=== PATIENT | male | born 1950 | race Caucasian/White ===

== ENCOUNTER 2017-07-25 06:01 | Inpatient (IN) | payer BC ==
[2017-07-25] VITALS (7 sets, daily range): BP systolic 148–152; BP diastolic 69–70; PULSE 50–84; RESP 16–20; TEMP 97.8–98.9; O2SAT 94–96
[~2017-07-25] VITALS: Ht 172.7 cm; Wt 98.0 kg
[~2017-07-25 06:01] MED LIST: ADVA250A INH; ALBU6.7H INH; ASPI1TAB57 PO; CARV12.52 PO; CLOP75TA PO; FENO160T PO; FISH1200 PO; HYDR12.57 PO; ISOS120T PO; LEVO125T4 PO; METF1000 PO; MULT-65 PO; ONGL5TAB PO; RAMI10CA PO; ROSU1TAB8 PO; TEST200I12 IM
--- NOTE | 2017-07-25 06:28 | PD.VS.PN ---
Pre-operative Note Pre-operative diagnosis: AAA Planned procedure: EVAR Interval History: Pt is appropriately anxious but otherwise ready for surgery. No changes in health that would preclude OR. Labs: Hct 46 plt 234 INR 1.0 creatinine 1.4 Blood: T&S EKG: no acute changes Imaging: CTA (AW) reviewed Orders: NPO Ancef 2g IV OCTOR Post-operative destination: PACU Operative site marked: No (not indicated) Consent: Informed consent has been obtained from Ki Humphries. I have explained the procedure in detail and discussed the risks, benefits, and potential complications. All questions have been answered. Kang Sotelo MD July 25, 2017 06:28
[2017-07-25] MEDS ORDERED: SODIUM CHLORID 0.9% 500 ML IV PRN (06:30)
[2017-07-25] MEDS ORDERED: CHLORHEXIDINE GLUCONATE 2 % 1 PACK (2 CLOTHS) TOPICAL PRN (06:30)
[2017-07-25] MEDS ORDERED: LACTATED RINGER'S 1000 ML IV PRN (06:30)
[2017-07-25] MEDS ORDERED: POVIDONE IODINE 5% (ANTISEPSIS KIT) 4 APPLICATIONS EACH NARE PRN (06:30)
[2017-07-25] MEDS ORDERED: METOPROLOL TARTRATE 25 MG TAB PO PRN (06:30)
[2017-07-25] MEDS ORDERED: VITA400C5 PO (06:55)
[2017-07-25] MEDS ORDERED: META48.53 PO (06:55)
[2017-07-25] MEDS ORDERED: OSTETAB2 PO (06:55)
[2017-07-25] MEDS ORDERED: CETI10 PO (06:55)
[2017-07-25] MEDS ORDERED: FISHCAP4 PO (06:55)
[2017-07-25] MEDS ORDERED: COQ1200C3 PO (06:55)
[2017-07-25] MEDS ORDERED: GARL100T PO (06:55)
[2017-07-25] MEDS ORDERED: PRAS1CAP PO (06:55)
[2017-07-25] MEDS ORDERED: REFRDRO EACH EYE (06:55)
[2017-07-25] MEDS ORDERED: CORICAP PO (06:55)
[2017-07-25] MEDS ORDERED: CYAN1TAB24 PO (06:55)
[2017-07-25] MEDS ORDERED: LEVO137T2 PO (06:55)
[2017-07-25] MEDS ORDERED: RESV100C PO (06:55)
[2017-07-25] MEDS ORDERED: VITATAB25 PO (06:55)
[2017-07-25] MEDS ORDERED: CARVEDILOL 12.5 MG TAB PO ONE (07:15)
[2017-07-25] MEDS ORDERED: HEPARIN SODIUM - IV 10,000 UNITS/10 ML VIAL ONE (07:41)
[2017-07-25] MEDS ORDERED: ceFAZolin 2 GM PREMIX 50 ML ONE (07:41)
[2017-07-25] MEDS ORDERED: HEPARIN-NS/PF INJ 500 ML ONE (07:41)
[2017-07-25] MEDS ORDERED: PROTAMINE SULFATE 50 MG/5 ML VIAL ONE (07:41)
[2017-07-25] MEDS ORDERED: FAMOTIDINE 20 MG/2 ML VIAL ONE (07:58)
[2017-07-25] MEDS ORDERED: ACETAMINOPHEN 1000 MG/100 ML 100 ML IV ONE (07:58)
[2017-07-25] MEDS ORDERED: MIDAZOLAM HCL 2 MG/2 ML VIAL ONE (07:59)
[2017-07-25] MEDS ORDERED: PHENYLEPH/NS 1000 MCG/10 ML SYR IV ONE (09:07)
[2017-07-25] MEDS ORDERED: LIDOCAINE HCL 1% PF 5 ML SYRINGE OTHER ONE (09:07)
[2017-07-25] MEDS ORDERED: SODIUM CHLORIDE 0.9% 10 ML VIAL IV ONE (09:07)
[2017-07-25] MEDS ORDERED: PROPOFOL 200 MG/20 ML AMP IV ONE (09:07)
[2017-07-25] MEDS ORDERED: ONDANSETRON HCL 4 MG/2 ML VIAL IV ONE (09:07)
[2017-07-25] MEDS ORDERED: ROCURONIUM INJ 50 MG/5 ML SYRINGE IV PUSH ONE (09:07)
[2017-07-25] MEDS ORDERED: GLYCOPYRROLATE 1 MG/5 ML SYRINGE IV PUSH ONE (09:07)
[2017-07-25] MEDS ORDERED: NEOSTIGMINE 5 MG/5 ML SYRINGE IV PUSH ONE (09:07)
[2017-07-25] MEDS ORDERED: NORMOSOL R INJ 1,000 ML IV ONE (09:07)
[2017-07-25] MEDS ORDERED: DEXAMETHASONE SOD PHOS 4 MG/ML VIAL IV ONE (09:07)
[2017-07-25] MEDS ORDERED: SODIUM CHLORID 0.9% 500 ML INJ 500 ML IV ONE (09:07)
[2017-07-25] MEDS ORDERED: IOHEXOL 300 INJ 50 ML IV ONE (09:20)
--- NOTE | 2017-07-25 10:04 | HHI.PR ---
cc: Kang Sotelo MD; Noah Mendez MD Immediate Post Op Note Procedure Date: July 25, 2017 Pre Op Diagnosis: AAA Post Op Diagnosis: AAA Surgeon: Kang Sotelo Service Or Work Dispatcher Chief(s): Kang Mckeon Procedure: 1. EVAR 2. R CORPORATE FITNESS PROGRAM COORDINATOR Perclose (17F) 3. L CORPORATE FITNESS PROGRAM COORDINATOR Angioseal (6F) Findings: successful EVAR without endoleak at end of case good Doppler signals at conclusions of case Complications: none Specimen(s) removed: none Estimated blood loss: 75mL Anesthesia: General Drains: None Fluids: 1400mL IVF Urinary Output (mLs): 400 Patient to: PACU Patient Condition: Good Implant/Devices: SEE IMPLANT LOG (if applicable) Date/Time of Procedure: SEE SURGICAL CARE RECORD Kang Sotelo MD July 25, 2017 10:04
[2017-07-25] MEDS ORDERED: DEXTROMETHORPHAN GUAIFENESIN PO PRN (10:15)
[2017-07-25] MEDS ORDERED: NON-FORMULARY DRUG (Psyllium Powder (Metamucil Original Texture) 1 SCOOP) PO PRN (10:15)
[2017-07-25] MEDS ORDERED: BISACODYL 10 MG SUPP RECTAL PRN (10:15)
[2017-07-25] MEDS ORDERED: SENNOSIDES 8.6 MG TAB PO PRN (10:15)
[2017-07-25] MEDS ORDERED: MAGNESIUM HYDROXIDE SUSP 30 ML CUP PO PRN (10:15)
[2017-07-25] MEDS ORDERED: LACTULOSE SYRUP 20 GM/30 ML CUP PO PRN (10:15)
[2017-07-25] MEDS ORDERED: DO NOT ADM ANY ANTICOAGULANT DRUGS PRN (10:24)
[2017-07-25] MEDS ORDERED: *morphine SULFATE 4 MG/ML PERIprocedure ONLY ONE ×3 (10:40→11:33)
[2017-07-25] MEDS ORDERED: MORPHINE SULFATE 4 MG/ML INJ ONE (11:05)
--- NOTE | 2017-07-25 11:12 | MP ---
cc: Kang Sotelo MD DATE OF OPERATION: PREOPERATIVE DIAGNOSIS: Abdominal aortic aneurysm. POSTOPERATIVE DIAGNOSIS: Abdominal aortic aneurysm. PROCEDURE: 1. Endovascular exclusion of abdominal aortic aneurysm using an aortobi-iliac graft. 2. Right common femoral artery Perclose for a 17-Monegasque sheath. 3. Left common femoral artery Angio-Seal for a 6-Monegasque sheath. ATTENDING SURGEON: Kang Sotelo MD CARD ROOM MANAGER SURGEON: Kang Browne. ANESTHESIA: General. INDICATIONS: Mr. Humphries is a 66-year-old gentleman with 5.3 cm abdominal aortic aneurysm. After a thorough discussion was held with the patient explaining the risks and benefits, he was taken to operating room for endovascular exclusion. DESCRIPTION OF PROCEDURE: Informed consent was obtained from the patient. He was taken to the operating room and placed supine on the operating table. An appropriate timeout was taken to ensure the patient's identity, the operative site and the planned procedure. The administration of 2 grams of Ancef was initiated prior to skin incision and will be discontinued after a single preoperative dose. Everyone in the room agreed with the timeout and we proceeded. He was prepped from his nipples to his knees. A 21-gauge micropuncture needle was used to access both common femoral arteries, was exchanged using Seldinger technique for a micropuncture sheath after which a 0.035 STORQ wire was introduced into both sheaths and then the left was exchanged for a 6-Monegasque sheath, the right for a 5-Monegasque sheath and 2 Perclose ProGlide sutures were then tied and inserted on the right hand side and the 8 Monegasque sheath was placed. The patient was systemically heparinized with 10,000 units of IV heparin. The STORQ wire was exchanged for a Lunderquist on the right and over the left-hand side a snare catheter was placed. The Cherie dilators were used to dilate the skin and subcutaneous fat and arteriotomy and the 17-Monegasque sheath was inserted on the right hand side and the main device was inserted, taking caution not to wrap the contralateral wire. Using a snare, the wire was snared from the contralateral side and then the device was pulled down to sit on the aortic bifurcation. The contralateral limb was deployed without difficulty and the wire was then unfastened from the top of the device with a pigtail catheter from the left hand side. The remainder of the main unibody device was deployed and the delivery system was removed. The sheath was then readvanced to proximal to the graft, up the right hand side and the proximal stent was then inserted. It was a 28 x 95 device. Angiography was performed to look at the renal arteries and the device was deployed without difficulty. After rewiring the pigtail catheter, completion angiogram showed excellent seating of the device, without any evidence of an endoleak. The device was removed, and two 10 mm balloons used to balloon the iliac limbs. The wire catheter and sheath were removed. Perclose were tied down on the right hand side and the left groin sheath was removed and Angio-Seal was deployed for hemostasis. There were good signals in the feet and the heparin was reversed with protamine. The patient was then awoken by Anesthesia and transferred to the recovery room in stable condition. I was present and scrubbed and performed the entire procedure. MD EZEQUIEL Plasencia/DANIEL , 10:19 AM , 11:09 AM CYRUS
[2017-07-25] MEDS: HYDROmorphone HCL 2 MG TAB PO PRN ×2 (15:53→21:57)
[2017-07-25] MEDS ORDERED: PRASTERONE 25 MG PO SCH (21:00)
[2017-07-25] MEDS ORDERED: FAMOTIDINE 20 MG TAB PO SCH (21:00)
[2017-07-25] MEDS ORDERED: BUDESONIDE-FORMOTEROL 160/4.5 MCG INHALER INH SCH (21:00)
[2017-07-25] MEDS ORDERED: CETIRIZINE HCL 10 MG TAB PO SCH (21:00)
[2017-07-25] MEDS: CARVEDILOL 12.5 MG TAB PO SCH (21:57)
[2017-07-25] MEDS: RAMIPRIL 5 MG CAP PO SCH (21:58)
[2017-07-25] MEDS: DOCUSATE SODIUM 50 MG/SENNA 8.6 MG TAB PO SCH (21:58)
[2017-07-26 03:00] VITALS: BP 170/81; PULSE 65; PULSE 66; RESP 17; TEMP 99; O2SAT 96
[2017-07-26] MEDS: HYDROmorphone HCL 2 MG TAB PO PRN (04:05)
[2017-07-26 04:38] LABS: HEMOGLOBIN 14.8 GM/DL (13.0-17.0); MEAN CELL VOLUME 91.5 FL (80.0-100.0); MEAN CORPUSCULAR HEMOGLOBIN 31.6 PG (27.0-34.0); MEAN CORPUSCULAR HGB CONC 34.5 % (32.0-36.0); MEAN PLATELET VOLUME 7.8 FL (7.0-11.0); PLATELET COUNT 200 TH/MM3 (150-450); RED CELL DISTRIBUTION WIDTH 15.5 % (11.6-17.2); WHITE BLOOD COUNT 12.7 TH/MM3 (4.0-11.0)
[2017-07-26 05:09] LABS: BICARBONATE 25.5 MEQ/L (21.0-32.0); CALCIUM 8.8 MG/DL (8.5-10.1); CREATININE 1.39 MG/DL (0.60-1.30)
[2017-07-26] MEDS ORDERED: LEVOTHYROXINE SODIUM 112 MCG TAB PO SCH (06:00)
[2017-07-26] MEDS ORDERED: LEVOTHYROXINE SODIUM 25 MCG TAB PO SCH (06:00)
[2017-07-26 07:00] VITALS: BP 164/71; PULSE 61; RESP 18; TEMP 98.2; O2SAT 97
--- NOTE | 2017-07-26 07:28 | PD.VS.PN ---
Subjective POD #: 1 Procedure(s): EVAR Subjective/Hospital Course looks great; pain controlled ambulating ever po voided since Abdul out Objective Vitals/I&O Date Time Temp Pulse Resp B/P (MAP) Pulse Ox O2 Delivery O2 Flow Rate FiO2 07/26/17 05:29 16 07/26/17 03:00 99.0 65 17 170/81 (110) 96 07/26/17 03:00 66 07/25/17 23:00 51 07/25/17 23:00 97.8 50 16 148/70 (96) 94 07/25/17 19:00 98.9 61 16 152/69 (96) 95 07/25/17 19:00 61 07/25/17 18:00 74 07/25/17 17:00 84 07/25/17 16:38 94 21 07/25/17 16:00 71 07/25/17 15:45 72 07/25/17 15:45 98.4 72 20 151/70 (97) 96 07/25/17 15:30 98.1 68 17 141/65 (90) 97 Nasal Cannula 2 07/25/17 15:00 67 17 136/66 (89) 97 Nasal Cannula 2 07/25/17 14:00 50 17 133/65 (87) 98 Nasal Cannula 2 07/25/17 13:30 42 15 114/66 (82) 98 Nasal Cannula 2 07/25/17 13:00 59 13 136/69 (91) 98 Nasal Cannula 2 07/25/17 12:30 53 15 136/62 (86) 97 07/25/17 12:00 54 14 129/64 (85) 97 Nasal Cannula 2 07/25/17 11:45 54 14 136/62 (86) 97 Nasal Cannula 2 07/25/17 11:15 52 17 154/63 (93) 96 Nasal Cannula 2 07/25/17 11:00 56 17 154/70 (98) 97 Nasal Cannula 2 07/25/17 10:45 56 17 131/73 (92) 94 Nasal Cannula 2 07/25/17 10:34 Nasal Cannula 2 07/25/17 10:30 63 19 133/70 (91) 100 Simple Mask 6 154/75 (101) 07/25/17 10:21 97.3 64 19 138/63 (88) 97 Simple Mask 6 07/26/17 07/26/17 07/26/17 07:00 15:00 23:00 Intake Total 240 ml Output Total 400 ml Balance -160 ml Exam: abdomen NT groins soft, no ecchymoses Laboratory Laboratory Tests Test 07/26/17 04:23 White Blood Count 12.7 Red Blood Count 4.70 Hemoglobin 14.8 Hematocrit 43.0 Mean Corpuscular Volume 91.5 Mean Corpuscular Hemoglobin 31.6 Mean Corpuscular Hemoglobin Concent 34.5 Red Cell Distribution Width 15.5 Platelet Count 200 Mean Platelet Volume 7.8 Blood Urea Nitrogen 12 Creatinine 1.39 Random Glucose 138 Calcium Level 8.8 Sodium Level 139 Potassium Level 3.9 Chloride Level 102 Carbon Dioxide Level 25.5 Anion Gap 12 Estimat Glomerular Filtration Rate 51 Assessment and Plan Plan POD#1 s/p EVAR Looks great D/C today Discharge Planning today f/u 1m with CTA A/P Kang Sotelo MD July 26, 2017 07:28
--- NOTE | 2017-07-26 07:35 | PD.VS.DC ---
cc: Noah Mendez MD Discharge Summary Admission Date: July 25, 2017 at 06:01 Discharge Date: July 26, 2017 Admission Diagnosis: (1) AAA (abdominal aortic aneurysm) without rupture Discharge Diagnosis: (1) AAA (abdominal aortic aneurysm) without rupture ICD Codes: I71.4 - Abdominal aortic aneurysm, without rupture Brief History from admission 66 yo male with asymptomatic AAA, 5.3 cm. Presents for elective EVAR Procedure(s): EVAR Significant Findings Laboratory Tests Test 07/26/17 04:23 White Blood Count 12.7 TH/MM3 (4.0-11.0) Creatinine 1.39 MG/DL (0.60-1.30) Random Glucose 138 MG/DL (74-106) Estimat Glomerular Filtration Rate 51 ML/MIN (>89) Hospital Course: The patient underwent percutaneous EVAR on 07/25 and did well post-operatively. By POD#1, he was ambulating, tolerating a diet, and had voided since Abdul removed. Groin puncture sites looked good. Ready for discharge Discharge Condition: Good Discharge Disposition: Discharge Home Any questions or concerns: Call [facility] at [facility] [phone] Kang Sotelo MD July 26, 2017 07:35
[2017-07-26] MEDS: DOCUSATE SODIUM 50 MG/SENNA 8.6 MG TAB PO SCH (08:39)
[2017-07-26] MEDS: RAMIPRIL 5 MG CAP PO SCH (08:40)
[2017-07-26] MEDS: CARVEDILOL 12.5 MG TAB PO SCH (08:41)
[2017-07-26] MEDS ORDERED: CYANOCOBALAMIN 1,000 MCG TAB PO SCH (09:00)
[2017-07-26] MEDS ORDERED: metFORMIN HCL 500 MG TAB PO SCH (09:00)
[2017-07-26] MEDS ORDERED: NON-FORMULARY DRUG (Omega-3 Fatty Acids (Fish Oil 1200 mg) 1 CAP) PO SCH (09:00)
[2017-07-26] MEDS ORDERED: MULTIVITAMIN TAB PO SCH (09:00)
[2017-07-26] MEDS ORDERED: SAXAGLIPTIN PO SCH (09:00)
[2017-07-26] MEDS ORDERED: HYDROCHLOROTHIAZIDE 12.5 MG CAP PO SCH (09:00)
[2017-07-26] MEDS ORDERED: ATORVASTATIN 40 MG TAB PO SCH (09:00)
[2017-07-26] MEDS ORDERED: FENOFIBRATE 145 MG TAB PO SCH (09:00)
[2017-07-26] MEDS ORDERED: VITAMIN E 400 UNIT CAP PO SCH (09:00)
[2017-07-26] MEDS ORDERED: CLOPIDOGREL 75 MG TAB PO SCH (09:00)
[2017-07-26] MEDS ORDERED: ASPIRIN EC 81 MG TABEC PO SCH (09:00)
[2017-07-26] MEDS ORDERED: CHOLECALCIFEROL (VIT D3) 1000 UNIT TAB PO SCH (09:00)
[2017-07-26] MEDS ORDERED: ISOSORBIDE MONONITRATE 60 MG CR TAB (IMDUR) PO SCH (09:00)
[2017-07-26] MEDS ORDERED: ENOXAPARIN SODIUM 40 MG/0.4 ML SYRINGE SQ SCH (09:30)
== END 2017-07-26 09:08 | disposition home or self-care (01) | DRG 269 ==
LOC: EDBD → HSDI 06:01 → EDUNIT# 08:00 → HCPC 15:35
PROVIDERS: ADMIT Surgery; ATTEND Surgery
PROC: 04V03DZ Restriction of Abdominal Aorta with Intraluminal Device, Percutaneous Approach (ICD-10-PCS; principal; 2017-07-25 08:33)
DX: I71.4 Abdominal aortic aneurysm, without rupture (principal); I10 Essential (primary) hypertension; E11.9 Type 2 diabetes mellitus without complications; E78.5 Hyperlipidemia, unspecified; I25.10 Atherosclerotic heart disease of native coronary artery without angina pectoris; Z87.891 Personal history of nicotine dependence; Z95.5 Presence of coronary angioplasty implant and graft; Z90.49 Acquired absence of other specified parts of digestive tract; Z88.8 Allergy status to other drugs, medicaments and biological substances; Z79.02 Long term (current) use of antithrombotics/antiplatelets; Z79.82 Long term (current) use of aspirin; Z79.84 Long term (current) use of oral hypoglycemic drugs
CPT/HCPCS: 75630; 80048; 85027; 86850; 86900; 86901; 94150; C1725; C1769; J0131; J0690; J1100; J1644; J1650; J2250; J2270; J2370; J2405; J2710; J2720; J3010; J7040; J7120; Q9967